=== PATIENT | female | born 1975 | race Two or more races ===

== ENCOUNTER → 2024-11-27 | Outpatient (CLI) | payer MEDICAID, SELFPAY ==
--- NOTE | 2024-11-27 10:30 | XR_ITS ---
Examination: Breast ultrasound, unilateral, left complete Date and time of exam: November 27, 2024 1056 hours INDICATIONS: Left breast arm pain beginning 3 months ago Technique: Real-time aguirre scale ultrasonographic imaging performed left breast including all 4 quadrants as well as nipple retroareolar and axillary region. Findings: 1:00 cyst 13 x 15 mm 1:00 cyst 9 x 7 mm 1:00 cyst 5 x 6 mm 2:00 cyst 3.1 x 2.1 cm Additional smaller cysts No solid nodules IMPRESSION: BI-RADS Category 2: Benign findings
--- NOTE | 2024-11-27 11:00 | XR_ITS ---
Examination: Diagnostic digital mammography, bilateral Computer aided detection 3-D breast Tomosynthesis, bilateral Date and time of exam: November 27, 2024 1141 hours Comparison June 25, 2021 INDICATIONS: Patient states left breast lump 3 months Technique: Nonmagnified MLO, CC views of the breasts to been obtained, reconstructed from 3-D Tomosynthesis images. R2 computer aided detection program utilized for evaluation of suspicious masses and/or abnormal calcifications. 3-D Tomosynthesis images obtained. Findings: The breasts are heterogeneously dense, which may obscure small masses 25 mm partially circumscribed nodule upper outer left breast anterior depth, corresponding to 2:00 cyst described on left breast sonogram today Suspicious for 30 mm mass retroareolar region right breast also partially circumscribed Impression: BI-RADS Category 0: Incomplete: Need additional imaging evaluation Recommend follow-up right breast sonography to confirm retroareolar cyst right breast
== END | disposition home or self-care (01) ==
LOC: CDIM 10:29
PROVIDERS: PCP Nurse Practitioner; Referring Provider Nurse Practitioner; Visit Provider Nurse Practitioner
DX: R92.8 Other abnormal and inconclusive findings on diagnostic imaging of breast (principal); N60.01 Solitary cyst of right breast; N60.02 Solitary cyst of left breast
CPT/HCPCS: 76641; 77062; 77066; G0279